=== PATIENT | female | born 1990 | race Caucasian/White ===

== ENCOUNTER 2024-01-09 23:26 | Emergency (ER) | payer OTHER ==
[2024-01-09 23:36] VITALS: BP 117/76; PULSE 72; RESP 16; TEMP 98.3; BMI 25.4
[2024-01-09] MEDS ORDERED: CYCLOBENZAPRINE HCL 5 MG TABLET ONE ×2 (23:54→23:56)
[2024-01-09] MEDS: CYCLOBENZAPRINE HCL 10 MG TABLET (FP) PO ONE (23:56)
== END 2024-01-10 00:01 | disposition home or self-care (01) ==
LOC: FER 23:26
DX: S13.4XXA Sprain of ligaments of cervical spine, initial encounter (principal); V89.2XXA Person injured in unspecified motor-vehicle accident, traffic, initial encounter; Y92.410 Unspecified street and highway as the place of occurrence of the external cause
CPT/HCPCS: 99283-25